=== PATIENT | female | born 1940 | race Caucasian/White ===

== ENCOUNTER 2018-08-21 11:40 | Observation (INO) ==
--- NOTE | 2018-08-21 12:20 | ED ---
HPI General Chief Complaint: Dizziness Stated Complaint: fall x last night Time Seen by Provider: 08/21/18 12:03 Source: patient Mode of arrival: ambulatory Limitations: no limitations History of Present Illness HPI Narrative: 77 yo F c/o fall last night leading to head laceration and L elbow laceration. pt reports profuse bleeding which eventually resolved at home. + prior episodes of dizziness. pt is not sure how she fell last night however denies LOC. no trip/mechanical fall. no CP/SOB. pt wonders if symptoms may be due to medications rx'd by PMD in [facility]. Patient arrives today because of dizziness lately and for evaluation of medications. + Hx aortic stenosis. + Compliance with aspirin. Related Data Home Medications Medication Instructions Recorded Confirmed atorvastatin 40 mg PO DAILY 08/21/18 08/21/18 carvedilol 12.5 mg PO BID 08/21/18 08/21/18 clonazepam 2 mg PO TID 08/21/18 08/21/18 losartan-hydrochlorothiazide 1 tab PO DAILY 08/21/18 08/21/18 valacyclovir 1 g PO DAILY 08/21/18 08/21/18 Allergies Allergy/AdvReac Type Severity Reaction Status Date / Time No Known Allergies Allergy Verified 08/21/18 11:51 Review of Systems Constitutional Denies fever(s) Neurologic Denies behavioral changes, Denies dizziness, Denies frequent falls, Denies headache(s), Denies numbness, Denies restless legs, Denies sensory deficit and Denies disequilibrium [facility] Medical History Medical History High cholesterol (Acute) Hypertension (Acute) Surgical History Surgical History History of carotid endarterectomy (Acute) Social History Social History Substance History: No History of Abuse Smoking Status: Former smoker How Often Do You Have a Drink Containing Alcohol: Never Recent Travel in [facility] within the Last 8 Weeks: No Recent Out of Country Travel within the Last 8 Weeks: No Exam Narrative Exam Narrative: GENERAL: 77 yo F, WNWD, pleasant, mildly anxious though cooperative SKIN: Focused skin assessment warm/dry. HEAD: Atraumatic. Normocephalic. 2mm dried blood wound along L occipital scalp. No hematoma. No mastoid ecchymosis or periorbital ecchymosis. EYES: Pupils equal and round. No scleral icterus. No injection or drainage. ENT: No nasal bleeding or discharge. Mucous membranes pink and moist. NECK: Trachea midline. No JVD. No c-spine tenderness to palpation. CARDIOVASCULAR: Regular rate and rhythm. No murmur appreciated. RESPIRATORY: No accessory muscle use. Clear to auscultation. Breath sounds equal bilaterally. GASTROINTESTINAL: Abdomen soft, non-tender, nondistended. Hepatic and splenic margins not palpable. MUSCULOSKELETAL: No obvious deformities. No clubbing. No cyanosis. No edema. NEUROLOGICAL: Awake and alert. No obvious cranial nerve deficits. Motor grossly within normal limits. Normal speech. PSYCHIATRIC: Appropriate mood and affect; insight and judgment normal. Course Initial Documented Vital Signs Temperature 97.4 F L 08/21/18 11:51 Pulse Rate 69 08/21/18 11:51 Respiratory Rate 16 08/21/18 11:51 Blood Pressure 152/67 H 08/21/18 11:51 Pulse Oximetry 95 08/21/18 11:51 Last Documented Vital Signs Temperature 97.4 F L 08/21/18 11:51 Pulse Rate 71 08/21/18 13:26 Respiratory Rate 18 08/21/18 13:26 Blood Pressure 149/71 H 08/21/18 13:26 Pulse Oximetry 95 08/21/18 13:26 Medical Decision Making MDM Narrative Medical decision making narrative: 77 F with near syncope, lightheadedness multiple times over past two weeks, yesterday with a fall. Workup thus far unremarkable. + Hx aortic stenosis. Pt has follow up on the [facility]. Call placed to [facility] for evaluation of near syncope at 141pm. D/W Dr Pino for [facility] at 157pm. Pt has been resting comfortably in ED. No cp/sob. PE considered less likely. Pt reports taking only asprin. Medical Screen Exam Complete: Yes Emergency Medical Condition: Yes Lab Data Lab results reviewed: Yes I reviewed the patient's lab results. Result diagrams: 08/21/18 12:35 08/21/18 12:35 Lab Results 08/21/18 08/21/18 08/21/18 Range/Units 12:35 12:35 12:35 CBC w Diff Auto diff final WBC 7.1 (4.0-11.0) th/mm3 RBC 3.82 L (4.00-5.30) mil/mm3 Hgb 12.1 (11.6-15.3) gm/dL Hct 36.0 (35.0-46.0) % MCV 94.4 (80.0-100.0) fL MCH 31.7 (27.0-34.0) pg MCHC 33.6 (32.0-36.0) % RDW 13.4 (11.6-17.2) % Plt Count 269 (150-450) th/mm3 MPV 7.5 (7.0-11.0) fL Neut % (Auto) 70.2 H (16.0-70.0) % Lymph % (Auto) 15.8 (9.0-44.0) % [place] % (Auto) 8.7 H (0.0-8.0) % Eos % (Auto) 5.0 H (0.0-4.0) % Baso % (Auto) 0.3 (0.0-2.0) % Neut # (Auto) 5.0 (1.8-7.7) th/mm3 Lymph # (Auto) 1.1 (1.0-4.8) th/mm3 [place] # (Auto) 0.6 (0.0-0.9) th/mm3 Eos # (Auto) 0.4 (0.0-0.4) th/mm3 Baso # (Auto) 0.0 (0.0-0.2) th/mm3 WBC Differential . Differential Comment . PT 10.3 (9.8-11.6) sec INR 1.0 Ratio APTT 25.5 (23.4-31.7) sec Sodium 138 (136-145) meq/L Potassium 4.0 (3.5-5.1) meq/L Chloride 100 (98-107) meq/L Carbon Dioxide 34.5 H (21.0-32.0) meq/L Anion Gap 4 L (5-15) meq/L BUN 7 (7-18) mg/dL Creatinine 0.63 (0.50-1.00) mg/dL Estimated GFR Greater than 89 (>89) mL/min Random Glucose 151 H (74-106) mg/dL Calcium 8.4 L (8.5-10.1) mg/dL Troponin I Less than 0.02 L (0.02-0.05) ng/mL Ur Collection Type Urine Color (Yellw/Straw) Urine Clarity (Clear) Urine pH (5.0-8.5) Ur Specific [place] (1.002-1.035) Urine Protein (Neg-Trace) mg/dL Urine Glucose (UA) (Negative) mg/dL Urine Ketones (Negative) mg/dL Urine Occult Blood (Negative) Urine Nitrate (Negative) Urine Bilirubin (Negative) Urine Urobilinogen (Less than 2) mg/dL Ur Leukocyte Esterase (Negative) Ur Squamous Epith Cells (0-5) /hpf Ur Transition Epith Cell (None) /hpf Micro UA Comment Ur Microscopic Review Urine Culture Comments 08/21/18 Range/Units 13:09 CBC w Diff WBC (4.0-11.0) th/mm3 RBC (4.00-5.30) mil/mm3 Hgb (11.6-15.3) gm/dL Hct (35.0-46.0) % MCV (80.0-100.0) fL MCH (27.0-34.0) pg MCHC (32.0-36.0) % RDW (11.6-17.2) % Plt Count (150-450) th/mm3 MPV (7.0-11.0) fL Neut % (Auto) (16.0-70.0) % Lymph % (Auto) (9.0-44.0) % [place] % (Auto) (0.0-8.0) % Eos % (Auto) (0.0-4.0) % Baso % (Auto) (0.0-2.0) % Neut # (Auto) (1.8-7.7) th/mm3 Lymph # (Auto) (1.0-4.8) th/mm3 [place] # (Auto) (0.0-0.9) th/mm3 Eos # (Auto) (0.0-0.4) th/mm3 Baso # (Auto) (0.0-0.2) th/mm3 WBC Differential Differential Comment PT (9.8-11.6) sec INR Ratio APTT (23.4-31.7) sec Sodium (136-145) meq/L Potassium (3.5-5.1) meq/L Chloride (98-107) meq/L Carbon Dioxide (21.0-32.0) meq/L Anion Gap (5-15) meq/L BUN (7-18) mg/dL Creatinine (0.50-1.00) mg/dL Estimated GFR (>89) mL/min Random Glucose (74-106) mg/dL Calcium (8.5-10.1) mg/dL Troponin I (0.02-0.05) ng/mL Ur Collection Type Clean catch Urine Color Yellow (Yellw/Straw) Urine Clarity Clear (Clear) Urine pH 8.0 (5.0-8.5) Ur Specific [place] 1.010 (1.002-1.035) Urine Protein Negative (Neg-Trace) mg/dL Urine Glucose (UA) Negative (Negative) mg/dL Urine Ketones Negative (Negative) mg/dL Urine Occult Blood Negative (Negative) Urine Nitrate Negative (Negative) Urine Bilirubin Negative (Negative) Urine Urobilinogen 0.2 (Less than 2) mg/dL Ur Leukocyte Esterase Negative (Negative) Ur Squamous Epith Cells 0-5 (0-5) /hpf Ur Transition Epith Cell 1-5 H (None) /hpf Micro UA Comment Culture not ind Ur Microscopic Review Microscopic reviewed Urine Culture Comments Culture not ind Imaging Data Attestation: I personally reviewed and interpreted this imaging study as follows : Radiologist's impression: Head CT 08/21/18 12:10 CONCLUSION: 1. No acute intracranial abnormality. 2. Age-related atrophy. 3. Right maxillary sinus disease. . Discharge Plan Discharge Disposition Patient Disposition: ED Admit(ED Internal Use Only) Physicians Team ED Provider: Jerry Saavedra Primary Care Provider: UNKNOWN, Rxs /Orders / Referrals /Forms Prescriptions: No Action atorvastatin 40 mg Tablet 40 mg PO DAILY RF: 0 carvedilol 12.5 mg Tablet 12.5 mg PO BID RF: 0 valacyclovir 1 gram Tablet 1 g PO DAILY RF: 0 clonazepam 2 mg Tablet 2 mg PO TID RF: 0 losartan-hydrochlorothiazide 50-12.5 mg Tablet 1 tab PO DAILY RF: 0 Status ED Status: With Doctor
[2018-08-21 12:42] LABS: Baso % (Auto) 0.3 % (0.0-2.0); Eos # (Auto) 0.4 th/mm3 (0.0-0.4); Hemoglobin 12.1 gm/dL (11.6-15.3); Lymph # (Auto) 1.1 th/mm3 (1.0-4.8); Lymph % (Auto) 15.8 % (9.0-44.0); Mean Corpuscular HGB Conc 33.6 % (32.0-36.0); Mean Corpuscular Hemoglobin 31.7 pg (27.0-34.0); Mean Corpuscular Volume 94.4 fL (80.0-100.0); Mean Platelet Volume 7.5 fL (7.0-11.0); Mono # (Auto) 0.6 th/mm3 (0.0-0.9); Mono % (Auto) 8.7 % (0.0-8.0); Neut % (Auto) 70.2 % (16.0-70.0); Platelet Count 269 th/mm3 (150-450); Red Blood Count 3.82 mil/mm3 (4.00-5.30); Red Cell Distribution Width 13.4 % (11.6-17.2); White Blood Count 7.1 th/mm3 (4.0-11.0)
[2018-08-21 12:49] LABS: Chloride 100 meq/L (98-107); Sodium 138 meq/L (136-145)
[2018-08-21 12:51] LABS: Calcium 8.4 mg/dL (8.5-10.1)
[2018-08-21 12:52] LABS: Anion Gap 4 meq/L (5-15); Blood Urea Nitrogen 7 mg/dL (7-18); Carbon Dioxide 34.5 meq/L (21.0-32.0); Glucose,Random 151 mg/dL (74-106)
[2018-08-21 12:55] LABS: Activated Partial Thrombo Time 25.5 sec (23.4-31.7); Glomerular Filtration Rate Greater Than 89 mL/min (>89); Prothrombin Time 10.3 sec (9.8-11.6)
--- NOTE | 2018-08-21 12:57 | CT ---
EXAM DATE: 08/21/2018 12:51 PM EST AGE/SEX: 77 years / Female INDICATIONS: Trauma. Fell and hit back of head last night. Head laceration. Dizziness last night. CLINICAL DATA: This is the patient's initial encounter. Patient reports that signs and symptoms have been present for 1 day and indicates a pain score of 1/10. MEDICAL/SURGICAL HISTORY: None. None. RADIATION DOSE: 48.21 CTDI (mGy) COMPARISON: No prior exams available for comparison. TECHNIQUE: CT of the head without contrast. Using automated exposure control and adjustment of the mA and/or kV according to patient size, radiation dose was kept as low as reasonably achievable to ob tain optimal diagnostic quality images. DICOM format image data is available electronically for revi ew and comparison. FINDINGS: Cerebrum: The ventricles and cortical sulci are widened. No evidence of midline shift, mass lesion, hemorrhage or acute infarction. No extraaxial fluid collections are seen. Posterior Fossa: The cerebellum and brainstem are intact. The 4th ventricle is midline. The cerebe llopontine angle is unremarkable. Extracranial: The visualized portion of the orbits is intact. There is mucosal thickening at the rig ht maxillary sinus. Skull: The calvaria is intact. No evidence of skull fracture. CONCLUSION: 1. No acute intracranial abnormality. 2. Age-related atrophy. 3. Right maxillary sinus disease. . Electronically signed by: Jason Sauceda MD 08/21/2018 12:56 PM EST
[2018-08-21] MEDS ORDERED: Sodium Chlor 0.9% Inj 500 ML IV.SIG SCH (13:00)
[2018-08-21 13:24] LABS: Bilirubin,Urine Negative (Negative); Clarity,Urine Clear (Clear); Color,Urine Yellow (Yellw/Straw); Glucose,Urine (UA) Negative (Negative); Leukocyte Esterase,Urine Negative (Negative); Nitrite,Urine Negative (Negative); Urobilinogen,Urine 0.2 mg/dL (Less than 2)
[2018-08-21 13:35] LABS: Squamous Epithelial Cell,Urine 0-5 /hpf (0-5)
[2018-08-21] MEDS: Sod Chloride 0.9% Inj 1,000 ML IV.CONT SCH ×3 (14:12→22:01)
[2018-08-21 14:21] LABS: Albumin 3.6 g/dL (3.4-5.0)
[2018-08-21 14:23] LABS: Aspartate Aminotransferase 21 U/L (15-37)
[2018-08-21 14:24] LABS: Alanine Aminotransferase 23 U/L (10-53)
[2018-08-21 14:43] LABS: Alkaline Phosphatase 59 U/L (45-117); Total Protein 7.3 g/dL (6.4-8.2)
[2018-08-21] MEDS ORDERED: Bisacodyl 10 MG Supp RECTAL PRN (15:00)
[2018-08-21] MEDS ORDERED: Acetaminophen 325 MG Tablet PO PRN (15:00)
--- NOTE | 2018-08-21 17:04 | P.HP ---
History of Present Illness Primary Care Physician: UNKNOWN Chief Complaint: Dizziness History of Present Illness: 77-year-old female with known history of hypertension, hyperlipidemia , carotid stenosis, aortic stenosis who presented to the hospital because of recurrent falls at home. Patient states that she has been having episodes of dizziness over the last week. She states that approximately 3 different episodes where she was doing different activities causing her to have dizziness. She states that the dizziness can happen rather sudden and without any prewarning. There is no specific time in which can happen whether it is during exercise, rest, standing, sitting, exertion. Patient states that last night she just got done washing some dishes, doing a little chores around the kitchen and she got this sudden onset of dizziness and she fell down to the floor and hitting her left elbow and the posterior part of her scalp and her hip. Patient denies any loss of consciousness, loss of bowel or bladder control , any tonic-clonic movements. Patient states that there was quite a bit of blood from her elbow and posterior scalp. She cannot see the backside of her head and there was no one at her home in order to check it so she went to her friend's home who cleaned the wound up and she went back home. She called her sister this morning who told her that she needed to go to the hospital for evaluation. Patient is followed on a regular basis by her doctor in [facility]. She does get carotid ultrasounds, echocardiograms done on a yearly basis. She states that everything has been okay at this time. Patient did come to the emergency department for evaluation. Workup was performed and relatively unremarkable. It was recommended by ER physician that the patient be admitted for further evaluation and management. - Diagnosis (1) Fall at home (2) Closed head injury Inpatient Certification: I certify that the inpatient services were ordered in accordance with Medicare regulations governing the order. This includes certification that hospital inpatient services are reasonable and necessary and in the case of services not specified as inpatient-only under 42 CFR 419.22(n), that they are appropriately provided as inpatient services in accordance to with the 2-midnight benchmark under 43 CFR 412.3(e) Review of Systems Neurologic: Reports dizziness (With fall at home) [facility] - History History Provided By: Patient - Medical History Medical History: Medical History (Last Updated 08/21/18 @ 16:38 by AMANDA Day) Aortic stenosis High cholesterol Hypertension - Surgical History Surgical History: Surgical History (Last Reviewed 08/21/18 @ 16:39 by AMANDA Day) History of carotid endarterectomy - Family History Family History: Family History (Last Updated 08/21/18 @ 16:39 by AMANDA Day) Mother Family history of cirrhosis of liver Father Family history of lung cancer Sister Family history of lung cancer - Tobacco History Second Hand Smoke Exposure: No Tobacco Use In Past 30 Days: No Smoking Status: Former smoker Tobacco Type: Cigarettes Number of Cigars Per Week: 27 (Patient quit smoking 35 years ago) - Alcohol History How Often Do You Have a Drink Containing Alcohol: Monthly or less - Substance Use History Substance History: No History of Abuse - Travel History Recent Travel in the [place] Within the Last 8 Weeks: No Recent Travel Out of the Country Within the Last 8 Weeks: Yes - Immunization History Tetanus Immunization: <5 Years Medications and Allergies Active Medications: Active Medications Acetaminophen (Tylenol) 650 mg PO Q4H PRN PRN Reason: Headache, fever, pain 1-4 Al Hydroxide/Mg Hydroxide (Milk Of Magnesia Liq) 30 ml PO Q12H PRN PRN Reason: Mild Constipation Bisacodyl (Dulcolax Supp) 10 mg RECTAL DAILY PRN PRN Reason: SEVERE CONSITIPATION Sodium Chloride (Ns Inj) 1,000 mls @ 100 mls/hr IV.CONT .Q10H [facility] Stop: 08/22/18 14:59 Last Admin: 08/21/18 16:05 Dose: Not Given Lactulose (Lactulose Liq) 30 ml PO DAILY PRN PRN Reason: SEVERE CONSITIPATION Ondansetron HCl (Zofran Inj) 4 mg IV.PUSH Q6H PRN PRN Reason: NAUSEA OR VOMITING Sennosides (Senokot) 17.2 mg PO Q12H PRN PRN Reason: Moderate Constipation Sodium Chloride (Ns Flush) 2 ml IV.FLUSH PRN PRN PRN Reason: FLUSH AFTER USING IV ACCESS Sodium Chloride (Ns Flush) 2 ml IV.FLUSH PRN PRN PRN Reason: FLUSH AFTER USING IV ACCESS Sodium Chloride (Ns Flush) 2 ml IV.FLUSH BID [facility] Allergies Allergy/AdvReac Type Severity Reaction Status Date / Time No Known Allergies Allergy Verified 08/21/18 11:51 Home Medications Medication Instructions Recorded Confirmed Type atorvastatin 40 mg PO DAILY 08/21/18 08/21/18 History carvedilol 12.5 mg PO BID 08/21/18 08/21/18 History clonazepam 2 mg PO TID 08/21/18 08/21/18 History losartan-hydrochlorothiazide 1 tab PO DAILY 08/21/18 08/21/18 History valacyclovir 1 g PO DAILY 08/21/18 08/21/18 History Exam Vital signs: Vital Signs 08/21/18 11:51 08/21/18 12:30 08/21/18 13:26 Temperature 97.4 F L Pulse Rate 69 64 71 Respiratory Rate 16 18 Blood Pressure 152/67 H 149/71 H Pulse Oximetry 95 98 95 08/21/18 14:35 08/21/18 16:00 Temperature 96.4 F L Pulse Rate 66 76 Respiratory Rate 20 17 Blood Pressure 150/58 H 148/64 H Pulse Oximetry 95 96 Intake & Output 08/20/18 08/21/18 08/21/18 18:59 06:59 18:59 Intake Total 500 / 500 Balance 500 / 500 Weight 61.4 kg Intake: IV 500 / 500 NS Inj 500 ML @ 1000 mls/hr IV. 500 / 500 SIG BOLUS ROD Rx#:[id number] Other: Date of Last Bowel Movement 08/21/18 Weight On Admission 61.4 kg Narrative: GENERAL: Well-developed, well-nourished, in no acute distress. alert and orientated HEENT: Head is normocephalic without any lesions or masses noted. Facial features are symmetric. Eyes: Pupils equal round reactive to light. Extraocular muscles are intact. Conjunctivae were clear. Oropharyngeal: Pharynx without any erythema edema. Tongue is midline without deviation. Buccal mucosa is moist without any masses or lesions NECK: Supple without any masses. Trachea midline no deviation. No JVD, auscultation of the carotid arteries both have sounds coming from her aortic stenosis CARDIAC: Regular rhythm, regular rate. S1/S2 are heard. 2/6 early holosystolic murmur noted in the aortic region. No gallops or rubs. LUNGS: Clear to auscultation bilaterally. No wheeze, rhonchi or rales. No use of accessory muscles on inspiration or expiration. ABDOMEN: Soft, nontender. Nondistended. Bowel sounds heard in all 4 quadrants. No organomegaly or masses. Negative rebound, negative guarding EXTREMITIES: No edema, pulses are equal bilaterally. No cyanosis or clubbing NEUROLOGY: Mood and affect appear appropriate. Cranial nerves II through XII grossly intact. Muscle strength 5/5 in upper and lower extremities bilaterally. Deep tendon reflexes are 2+ in upper and lower extremities bilaterally. Results - Labs CBC & Chem 7: 08/21/18 12:35 08/21/18 12:35 Labs: Laboratory Results - last 24 hr 08/21/18 08/21/18 08/21/18 12:35 12:35 12:35 CBC w Diff Auto diff final WBC 7.1 RBC 3.82 L Hgb 12.1 Hct 36.0 MCV 94.4 MCH 31.7 MCHC 33.6 RDW 13.4 Plt Count 269 MPV 7.5 Neut % (Auto) 70.2 H Lymph % (Auto) 15.8 [place] % (Auto) 8.7 H Eos % (Auto) 5.0 H Baso % (Auto) 0.3 Neut # (Auto) 5.0 Lymph # (Auto) 1.1 [place] # (Auto) 0.6 Eos # (Auto) 0.4 Baso # (Auto) 0.0 WBC Differential . Differential Comment . PT 10.3 INR 1.0 APTT 25.5 Sodium 138 Potassium 4.0 Chloride 100 Carbon Dioxide 34.5 H Anion Gap 4 L BUN 7 Creatinine 0.63 Estimated GFR Greater than 89 Random Glucose 151 H Calcium 8.4 L Total Bilirubin 0.6 AST 21 ALT 23 Alkaline Phosphatase 59 Troponin I Less than 0.02 L Total Protein 7.3 Albumin 3.6 Ur Collection Type Urine Color Urine Clarity Urine pH Ur Specific [place] Urine Protein Urine Glucose (UA) Urine Ketones Urine Occult Blood Urine Nitrate Urine Bilirubin Urine Urobilinogen Ur Leukocyte Esterase Ur Squamous Epith Cells Ur Transition Epith Cell Micro UA Comment Ur Microscopic Review Urine Culture Comments 08/21/18 13:09 CBC w Diff WBC RBC Hgb Hct MCV MCH MCHC RDW Plt Count MPV Neut % (Auto) Lymph % (Auto) [place] % (Auto) Eos % (Auto) Baso % (Auto) Neut # (Auto) Lymph # (Auto) [place] # (Auto) Eos # (Auto) Baso # (Auto) WBC Differential Differential Comment PT INR APTT Sodium Potassium Chloride Carbon Dioxide Anion Gap BUN Creatinine Estimated GFR Random Glucose Calcium Total Bilirubin AST ALT Alkaline Phosphatase Troponin I Total Protein Albumin Ur Collection Type Clean catch Urine Color Yellow Urine Clarity Clear Urine pH 8.0 Ur Specific [place] 1.010 Urine Protein Negative Urine Glucose (UA) Negative Urine Ketones Negative Urine Occult Blood Negative Urine Nitrate Negative Urine Bilirubin Negative Urine Urobilinogen 0.2 Ur Leukocyte Esterase Negative Ur Squamous Epith Cells 0-5 Ur Transition Epith Cell 1-5 H Micro UA Comment Culture not ind Ur Microscopic Review Microscopic reviewed Urine Culture Comments Culture not ind - Imaging Impressions Head CT 08/21/18 12:10 CONCLUSION: 1. No acute intracranial abnormality. 2. Age-related atrophy. 3. Right maxillary sinus disease. . Caprini VTE Risk Assessment Caprini VTE Risk Assessment: Moderate/High Risk (score >= 2) Caprini Risk Assessment Model: Point Value = 1 Point Value = 2 Point Value = 3 Point Value = 5 Age 41-60 Minor surgery BMI > 25 kg/m2 Swollen legs Varicose veins or History of unexplained or recurrent spontaneous Oral contraceptives or hormone replacement Sepsis (< 1 month) Serious lung disease, including pneumonia (< 1 month) Abnormal pulmonary function Acute myocardial infarction Congestive heart failure (< 1 month) History of inflammatory bowel disease Medical patient at bed rest Age 61-74 Arthroscopic surgery Major open surgery (> 45 min) Laparoscopic surgery (> 45 min) Malignancy Confined to bed (> 72 hours) Immobilizing plaster cast Central venous access Age >= 75 History of VTE Family history of VTE Factor V Leiden Prothrombin [id number] Lupus anticoagulant Anticardiolipin antibodies Elevated serum homocysteine Heparin-induced thrombocytopenia Other congenital or acquired thrombophilia Stroke (< 1 month) Elective arthroplasty Hip, pelvis, or leg fracture Acute spinal cord injury (< 1 month) Prophylaxis Regimen: Total Risk Factor Score Risk Level Prophylaxis Regimen 0-1 Low Early ambulation 2 Moderate Order ONE of the following: *Sequential Compression Device (SCD) *Heparin 5000 units SQ BID 3-4 Higher Order ONE of the following medications: *Heparin 5000 units SQ TID *Enoxaparin/Lovenox 40 mg SQ daily (WT < 150 kg, CrCl > 30 mL/min) *Enoxaparin/Lovenox 30 mg SQ daily (WT < 150 kg, CrCl > 10-29 mL/min) *Enoxaparin/Lovenox 30 mg SQ BID (WT < 150 kg, CrCl > 30 mL/min) AND/OR *Sequential Compression Device (SCD) 5 or more Highest Order ONE of the following medications: *Heparin 5000 units SQ TID (Preferred with Epidurals) *Enoxaparin/Lovenox 40 mg SQ daily (WT < 150 kg, CrCl > 30 mL/min) *Enoxaparin/Lovenox 30 mg SQ daily (WT < 150 kg, CrCl > 10-29 mL/min) *Enoxaparin/Lovenox 30 mg SQ BID (WT < 150 kg, CrCl > 30 mL/min) AND *Sequential Compression Device (SCD) Assessment and Plan - Assessment (1) Fall at home Code(s): W19.XXXA - Unspecified fall, initial encounter; Y92.009 - Unspecified place in unspecified non-institutional (private) residence as the place of occurrence of the external cause Status: Acute (2) Closed head injury Code(s): S09.90XA - Unspecified injury of head, initial encounter Status: Acute - Plan Dizziness with fall at home resulting in closed head injury -Patient indicates that the symptoms have been going on for over a week. Given that the CT scan does not indicate any acute abnormality unlikely that this is related to acute CVA -Patient does have history of bilateral carotid stenosis status post carotid endarterectomy and active aortic stenosis -We will continue with IV fluids for at least 1 more liter -Obtain echocardiogram -Obtain carotid ultrasound -Monitor telemetry -Check orthostatic vitals -Continue frequent neuro checks for postconcussion syndrome Hypertension, hyperlipidemia -Patient does have mildly elevated blood pressure at this time -Continue Coreg at this time, will hold losartan/hydrochlorothiazide -Continue atorvastatin DVT prevention -Sequential compression devices
[2018-08-21] MEDS ORDERED: Sod Chloride 0.9% Inj 1,000 ML IV.CONT SCH (17:15)
--- NOTE | 2018-08-21 21:35 | US ---
EXAM DATE: 08/21/2018 9:28 PM EST AGE/SEX: 77 years / Female INDICATIONS: Syncope. CLINICAL DATA: This is the patient's initial encounter. Patient reports that signs and symptoms have been present for 1 day and indicates a pain score of 0/10. MEDICAL/SURGICAL HISTORY: Hypertension. Hypercholesterolemia. Aortic stenosis. Carotid endart erectomy. COMPARISON: No prior exams available for comparison. VELOCITY PARAMETERS: ICA/CCA Ratio: Right 1.6 , Left 3.2 ICA: Right 112 cm/sec, Left 244 cm/sec CCA: Right 69 cm/sec, Left 75 cm/sec ECA: Right 91 cm/sec, Left 139 cm/sec Vertebral: Right 73 cm/sec antegrade, Left 62 cm/sec antegrade FINDINGS: Right Carotid: Moderate arteriosclerotic plaque is visualized.The waveforms are within normal limits . Left Carotid: Moderate arteriosclerotic plaque is visualized. The waveforms are within normal limits . Other: None. CONCLUSION: 1. Right Internal Carotid Artery: Moderate visible plaque formation with mild to moderate stenosis. 2. Left Internal Carotid Artery: Moderate visible plaque formation with moderate to severe carotid s tenosis and PSV ratio of 3.2. This would be better evaluated on CTA carotids. Electronically signed by: Todd Nixon MD 08/21/2018 9:33 PM EST
[2018-08-21] MEDS: Carvedilol 12.5 MG Tablet PO SCH (22:02)
[2018-08-22] MEDS: Sod Chloride 0.9% Inj 1,000 ML IV.CONT SCH ×3 (02:38→11:11)
[2018-08-22] MEDS: Carvedilol 12.5 MG Tablet PO SCH ×2 (09:10→20:09)
--- NOTE | 2018-08-22 13:26 | P.PNIM ---
Subjective Interval history: 77-year-old female seen and examined today for follow-up on dizziness and syncopal episode. Patient resting comfortably in bed. Denies any new complaints. Denies any recurrent dizziness. Vital signs are stable. Patient remains afebrile. Physical Exam Vital signs: Vital Signs 08/21/18 13:26 08/21/18 14:35 08/21/18 16:00 Temperature 96.4 F L Pulse Rate 71 66 76 Respiratory Rate 18 20 17 Blood Pressure 149/71 H 150/58 H 148/64 H Pulse Oximetry 95 95 96 08/21/18 20:00 08/21/18 23:44 08/22/18 00:00 Temperature 97.8 F 97.5 F L Pulse Rate 80 78 80 Respiratory Rate 20 18 20 Blood Pressure 142/66 H 113/53 L Pulse Oximetry 92 L 90 L 08/22/18 00:15 08/22/18 02:04 08/22/18 04:00 Temperature 97.2 F L Pulse Rate 78 87 Respiratory Rate 20 Blood Pressure 137/63 Pulse Oximetry 92 L 92 L 08/22/18 08:00 08/22/18 12:00 Temperature 96.7 F L 96.8 F L Pulse Rate 89 79 Respiratory Rate 17 16 Blood Pressure 146/65 H 131/62 Pulse Oximetry 92 L 94 L Intake & Output 08/21/18 08/22/18 08/22/18 18:59 06:59 18:59 Intake Total 980 / 980 1240 / 1240 1000 / 1000 Balance 980 / 980 1240 / 1240 1000 / 1000 Weight 61.4 kg 61.5 kg Intake: IV 500 / 500 1000 / 1000 1000 / 1000 NS Inj 1,000 ML @ 100 mls/hr IV 1000 / 1000 1000 / 1000 .CONT .Q10H ROD Rx#:[id number] NS Inj 500 ML @ 1000 mls/hr IV. 500 / 500 SIG BOLUS ROD Rx#:[id number] Oral 480 / 480 240 / 240 Other: # Voids 3 2 Date of Last Bowel Movement 08/21/18 08/21/18 # Bowel Movements 0 Weight On Admission 61.4 kg Narrative: GENERAL: Well-developed, well-nourished, in no acute distress. alert and orientated HEENT: Head is normocephalic without any lesions or masses noted. Facial features are symmetric. Eyes: Extraocular muscles are intact. Conjunctivae were clear. NECK: Supple without any masses. Trachea midline no deviation. No JVD, CARDIAC: Regular rhythm, regular rate. S1/S2 are heard. 2/6 early holosystolic murmur noted in the aortic region. No gallops or rubs. LUNGS: Clear to auscultation bilaterally. No wheeze, rhonchi or rales. No use of accessory muscles on inspiration or expiration. ABDOMEN: Soft, nontender. Nondistended. Bowel sounds heard in all 4 quadrants. No organomegaly or masses. Negative rebound, negative guarding EXTREMITIES: No edema, pulses are equal bilaterally. No cyanosis or clubbing NEUROLOGY: Mood and affect appear appropriate. Cranial nerves II through XII grossly intact. Moving all extremities, speech is clear Results - Labs CBC & Chem 7: 08/21/18 12:35 08/21/18 12:35 Laboratory Results - last 24 hr 08/21/18 08/21/18 12:35 13:09 Sodium 138 Potassium 4.0 Chloride 100 Carbon Dioxide 34.5 H Anion Gap 4 L BUN 7 Creatinine 0.63 Estimated GFR Greater than 89 Random Glucose 151 H Calcium 8.4 L Total Bilirubin 0.6 AST 21 ALT 23 Alkaline Phosphatase 59 Troponin I Less than 0.02 L Total Protein 7.3 Albumin 3.6 Ur Collection Type Clean catch Urine Color Yellow Urine Clarity Clear Urine pH 8.0 Ur Specific [place] 1.010 Urine Protein Negative Urine Glucose (UA) Negative Urine Ketones Negative Urine Occult Blood Negative Urine Nitrate Negative Urine Bilirubin Negative Urine Urobilinogen 0.2 Ur Leukocyte Esterase Negative Ur Squamous Epith Cells 0-5 Ur Transition Epith Cell 1-5 H Micro UA Comment Culture not ind Ur Microscopic Review Microscopic reviewed Urine Culture Comments Culture not ind - Imaging Impressions Carotid Doppler Study 08/21/18 00:00 CONCLUSION: 1. Right Internal Carotid Artery: Moderate visible plaque formation with mild to moderate stenosis. 2. Left Internal Carotid Artery: Moderate visible plaque formation with moderate to severe carotid stenosis and PSV ratio of 3.2. This would be better evaluated on CTA carotids. Assessment and Plan - Assessment (1) Fall at home Code(s): W19.XXXA - Unspecified fall, initial encounter; Y92.009 - Unspecified place in unspecified non-institutional (private) residence as the place of occurrence of the external cause Status: Acute (2) Closed head injury Code(s): S09.90XA - Unspecified injury of head, initial encounter Status: Acute - Plan Dizziness with fall at home resulting in closed head injury -Patient indicates that the symptoms have been going on for over a week. Given that the CT scan does not indicate any acute abnormality unlikely that this is related to acute CVA -Patient does have history of bilateral carotid stenosis status post carotid endarterectomy and active aortic stenosis -Status post 2 L IV fluid resuscitation -Awaiting echocardiogram -Carotid ultrasound showing mild to moderate stenosis of the right internal carotid, moderate to severe stenosis in the left internal carotid, recommending CTA of the carotids -Awaiting CTA of the carotids -Monitor telemetry -Orthostatic vitals were performed and are positive, will make sure patient has SHANIKA hose on and repeat orthostatic blood pressures today. -Continue frequent neuro checks for postconcussion syndrome Hypertension, hyperlipidemia -Patient does have mildly elevated blood pressure at this time -Continue Coreg at this time, will hold losartan/hydrochlorothiazide -Continue atorvastatin DVT prevention -Sequential compression devices
--- NOTE | 2018-08-22 16:28 | ECHRPT ---
Indication: Syncope CONCLUSIONS Normal left ventricular size. Wall thickness is normal. The left ventricular systolic function is normal with an estimated ejection fraction in the range of 55-60%. Mild thickening of the mitral valve leaflets. [id number]-mp-quauvxip mitral valve regurgitation. Aortic valve sclerosis is present. Moderate aortic valve regurgitation. There is trace tricuspid valve regurgitation. BP: / HR: Rhythm: MEASUREMENTS (Male / Female) Normal Values Technical Quality:Fair 2D ECHO LV Diastolic Diameter PLAX 3.9 cm 4.2 - 5.9 / 3.9 - 5.3 cm LV Systolic Diameter PLAX 2.6 cm IVS Diastolic Thickness 0.8 cm 0.6 - 1.0 / 0.6 - 0.9 cm LVPW Diastolic Thickness 0.8 cm 0.6 - 1.0 / 0.6 - 0.9 cm LV Relative Wall Thickness 0.4 RV Internal Dim ED PLAX 1.8 cm LVOT Diameter 1.6 cm Aortic Root Diameter 2.5 cm LA Systolic Diameter LX 2.5 cm 3.0 - 4.0 / 2.7 - 3.8 cm M-MODE AV Cusp Separation MM 1.7 cm DOPPLER AV Peak Velocity 256.5 cm/s AV Peak Gradient 26.3 mmHg AV Mean Gradient 15.0 mmHg AV Velocity Time Integral 55.1 cm AI Peak Velocity 398.0 cm/s AI Peak Gradient 63.4 mmHg AI Pressure Half Time 341.0 ms LVOT Peak Velocity 111.0 cm/s LVOT Peak Gradient 4.9 mmHg LVOT Velocity Time Integral 27.7 cm AV Area Cont Eq vti 1.0 cm AV Area Cont Eq pk 0.9 cm MV Peak Velocity 151.0 cm/s MV Peak Gradient 9.1 mmHg MV Mean Velocity 115.0 cm/s MV Mean Gradient 6.0 mmHg Mitral E Point Velocity 130.0 cm/s Mitral A Point Velocity 141.0 cm/s Mitral E to A Ratio 0.9 LV E' Lateral Velocity 7.9 cm/s Mitral E to LV E' Lateral Ratio 16.5 LV E' Septal Velocity 6.1 cm/s Mitral E to LV E' Septal Ratio 21.2 TR Peak Velocity 292.0 cm/s TR Peak Gradient 34.1 mmHg Right Atrial Pressure 10.0 mmHg Pulmonary Artery Systolic Pressu 44.1 mmHg Right Ventricular Systolic Press 44.1 mmHg PV Peak Velocity 147.0 cm/s PV Peak Gradient 8.6 mmHg FINDINGS LEFT VENTRICLE Normal left ventricular size. Wall thickness is normal. The left ventricular systolic function is normal with an estimated ejection fraction in the range of 55-60%. RIGHT VENTRICLE Normal right ventricular size and systolic function. LEFT ATRIUM The left atrial size is normal. RIGHT ATRIUM The right atrial size is normal. ATRIAL SEPTUM Normal atrial septal thickness without atrial level shunting by limited color doppler interrogation. AORTA The aortic root and proximal ascending aorta are normal in size on limited imaging. MITRAL VALVE Mild thickening of the mitral valve leaflets. Mild mitral valve regurgitation. AORTIC VALVE Trileaflet aortic valve. Aortic valve sclerosis is present. Mild aortic valve regurgitation. TRICUSPID VALVE There is trace tricuspid valve regurgitation. PULMONARY VALVE No pulmonary valve regurgitation or stenosis. VESSELS The inferior vena cava is normal in size. PERICARDIUM No pericardial effusion. Harley Day MD (Electronically Signed) Final Date:22 August 2018 16:28
--- NOTE | 2018-08-22 19:07 | CT ---
EXAM DATE: 08/22/2018 6:57 PM EST AGE/SEX: 77 years / Female INDICATIONS: Dizziness. Syncope. Left carotid stenosis. CLINICAL DATA: This is the patient's initial encounter. Patient reports that signs and symptoms have been present for 2 days and indicates a pain score of 0/10. MEDICAL/SURGICAL HISTORY: Hypertension. Carotid endarterectomy. RADIATION DOSE: 42.95 CTDI (mGy) COMPARISON: [facility], US CAROTID DOPPLER BI, 08/21/2018. . TECHNIQUE: Volumetric scanning was performed using a multirow detector CT scanner during bolus infus ion of 75 ml Omnipaque 350 (iohexol) nonionic water-soluble contrast as a single exam dose. The da ta was postprocessed with a variety of visualization algorithms including full-volume maximum intensi ty projection, multiplanar sliding thin-slab reformation, curved-planar reformation, and surface-rend ering techniques. Using automated exposure control and adjustment of the mA and/or kV according to p atient size, radiation dose was kept as low as reasonably achievable to obtain optimal diagnostic armond lity images. DICOM format image data is available electronically for review and comparison. Percent stenosis is calculated using the diameter of the stenotic region over the diameter of the nor mal distal internal carotid artery. FINDINGS: Mild atherosclerosis of the arch and arch vessel origins without stenosis. Bilateral common carotid arteries are within normal limits. There is noncalcified atherosclerotic plaque of the bilateral bulbs and proximal internal carotid art eries, mild on the right and moderate on the left. No significant narrowing on the right. On the left , there is a less than 1 cm long area of 30% or less stenosis of the proximal internal carotid artery , for example series 100 image 37. Left vertebral artery origin is either from the base of the left subclavian artery origin directly fr om the arch. There is ostial atherosclerosis and probably an approximately 50% very short segment xochilt nosis. The right vertebral artery is normal. CONCLUSION: 1. Mild noncalcified atherosclerotic plaque of the right carotid bifurcation without significant julio césar rowing. 2. Moderate noncalcified atherosclerotic plaque of the left carotid bifurcation. There is a short se gment, 30% or less stenosis of the proximal internal carotid artery. 3. Ostial atherosclerosis and estimated 50% short segment stenosis of the left vertebral artery. It arises from the base of the left subclavian artery, potentially directly from the arch. Right vertebr al artery is normal. Electronically signed by: Jason Giordano MD 08/22/2018 7:06 PM EST
[2018-08-22] MEDS ORDERED: clonazePAM 1 MG Tablet PO ONE (21:00)
--- NOTE | 2018-08-23 08:41 | P.DS ---
Date of admission: 08/21/18 14:23 Primary care physician: UNKNOWN Attending physician on discharge: Klarissa Culp Anticipated date of discharge: 08/23/18 Brief History from admission: 77-year-old female with known history of hypertension, hyperlipidemia , carotid stenosis, aortic stenosis who presented to the hospital because of recurrent falls at home. Patient states that she has been having episodes of dizziness over the last week. She states that approximately 3 different episodes where she was doing different activities causing her to have dizziness. She states that the dizziness can happen rather sudden and without any prewarning. There is no specific time in which can happen whether it is during exercise, rest, standing, sitting, exertion. Patient states that last night she just got done washing some dishes, doing a little chores around the kitchen and she got this sudden onset of dizziness and she fell down to the floor and hitting her left elbow and the posterior part of her scalp and her hip. Patient denies any loss of consciousness, loss of bowel or bladder control , any tonic-clonic movements. Patient states that there was quite a bit of blood from her elbow and posterior scalp. She cannot see the backside of her head and there was no one at her home in order to check it so she went to her friend's home who cleaned the wound up and she went back home. She called her sister this morning who told her that she needed to go to the hospital for evaluation. Patient is followed on a regular basis by her doctor in [facility]. She does get carotid ultrasounds, echocardiograms done on a yearly basis. She states that everything has been okay at this time. Patient did come to the emergency department for evaluation. Workup was performed and relatively unremarkable. It was recommended by ER physician that the patient be admitted for further evaluation and management. DS: Diagnosis - Discharge Diagnosis (1) Fall at home Status: Acute (2) Closed head injury Status: Acute (3) Orthostatic hypotension Status: Acute DS: Summary Hospital Course: 77-year-old female who was recently evaluated in the hospital for episodes of dizziness, fall at home, closed head injury and possible syncopal episode. Patient did have workup done with CT of the brain which did not indicate any acute abnormality. Orthostatic vitals were performed which did indicate orthostatic hypotension. Patient was given IV fluid hydration, SHANIKA hose were placed. After hydration orthostatic vitals were performed and there is no more signs of orthostasis. Patient did undergo further workup as well with carotid ultrasound which did indicate severe left carotid stenosis and recommending CTA of the carotids. CTA was performed which did not indicate any severe carotid stenosis. Patient does have history of carotid stenosis with bilateral carotid endarterectomy. Echocardiogram was performed which did show some aortic sclerosis, however no significant aortic stenosis or other abnormalities that could contribute to her dizziness. Upon review of her medications it does appear the patient was on a diuretic. That was held during her stay in the hospital and her orthostatic blood pressure remained stable. Patient did have an episode last evening of possible anxiety with blood pressure elevation and tachycardia. Patient was given clonazepam with significant improvement of her condition. Patient is on clonazepam at home, however that was held during her stay in the hospital because of her recent dizziness, fall at home. Patient is clinically stable at this time. She is very eager to go home. No further signs or symptoms of orthostasis. 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 We will plan discharge accordingly. - Time Spent with Patient Total time spent providing and/or coordinating discharge services: Greater than 30 minutes - Quality: VTE Deep Vein Thrombosis/Pulmonary Embolism Present on Admission: No Exam Vital signs: Vital Signs 08/22/18 12:00 08/22/18 16:00 08/22/18 20:00 Temperature 96.8 F L 97.8 F 97 F L Pulse Rate 83 92 H 120 H Respiratory Rate 16 16 18 Blood Pressure 131/62 145/66 H 199/99 H Pulse Oximetry 94 L 95 92 L 08/23/18 00:00 08/23/18 04:00 Temperature 98.4 F 97.5 F L Pulse Rate 76 77 Respiratory Rate 18 18 Blood Pressure 94/46 L 114/56 L Pulse Oximetry 98 97 Intake & Output 08/22/18 08/23/18 08/23/18 18:59 06:59 18:59 Intake Total 2720 / 2720 240 / 240 Balance 2720 / 2720 240 / 240 Weight 61.6 kg Intake: IV 1999 NS Inj 1,000 ML @ 100 mls/hr IV 1999 .CONT .Q10H ROD Rx#:[id number] Oral 720 / 720 240 / 240 Other: # Voids 6 3 Date of Last Bowel Movement 08/21/18 # Bowel Movements 0 Narrative: GENERAL: Well-developed, well-nourished, in no acute distress. alert and orientated HEENT: Head is normocephalic without any lesions or masses noted. Facial features are symmetric. Eyes: Extraocular muscles are intact. Conjunctivae were clear. NECK: Supple without any masses. Trachea midline no deviation. No JVD, CARDIAC: Regular rhythm, regular rate. S1/S2 are heard. 2/6 early holosystolic murmur noted in the aortic region. No gallops or rubs. LUNGS: Clear to auscultation bilaterally. No wheeze, rhonchi or rales. No use of accessory muscles on inspiration or expiration. ABDOMEN: Soft, nontender. Nondistended. Bowel sounds heard in all 4 quadrants. No organomegaly or masses. Negative rebound, negative guarding EXTREMITIES: No edema, pulses are equal bilaterally. No cyanosis or clubbing NEUROLOGY: Mood and affect appear appropriate. Cranial nerves II through XII grossly intact. Moving all extremities, speech is clear Results Procedures completed during hospitalization: ECHOCARDIOGRAM CONCLUSIONS Normal left ventricular size. Wall thickness is normal. The left ventricular systolic function is normal with an estimated ejection fraction in the range of 55-60%. Mild thickening of the mitral valve leaflets. Tiox-rj-grazolpc mitral valve regurgitation. Aortic valve sclerosis is present. Moderate aortic valve regurgitation. There is trace tricuspid valve regurgitation. - Impressions ITS Impressions Carotid Doppler Study 08/21/18 00:00 CONCLUSION: 1. Right Internal Carotid Artery: Moderate visible plaque formation with mild to moderate stenosis. 2. Left Internal Carotid Artery: Moderate visible plaque formation with moderate to severe carotid stenosis and PSV ratio of 3.2. This would be better evaluated on CTA carotids. Head CT 08/21/18 12:10 CONCLUSION: 1. No acute intracranial abnormality. 2. Age-related atrophy. 3. Right maxillary sinus disease. . Neck CTA 08/22/18 00:00 CONCLUSION: 1. Mild noncalcified atherosclerotic plaque of the right carotid bifurcation without significant narrowing. 2. Moderate noncalcified atherosclerotic plaque of the left carotid bifurcation. There is a short segment, 30% or less stenosis of the proximal internal carotid artery. 3. Ostial atherosclerosis and estimated 50% short segment stenosis of the left vertebral artery. It arises from the base of the left subclavian artery, potentially directly from the arch. Right vertebral artery is normal. Discharge Plan - Discharge Disposition Patient Disposition: 01 Discharge Home - Discharge Condition Condition: Stable - Discharge Order Discharge Orders: Discharge Order (Routine); Ordered 08/23/18 Ordered By: Nestor Gary - Discharge Details Anticipated Discharge Date: 08/23/18 - Physicians Team Primary Care Provider: UNKNOWN, Attending Provider: Klarissa Culp
[2018-08-23] MEDS: Carvedilol 12.5 MG Tablet PO SCH (08:49)
--- NOTE | 2018-08-23 18:05 | ECG ---
Date Performed: 08/21/2018 Time Performed: 12:41:04 PTAGE: 77 years EKG: Sinus rhythm WITH FIRST DEGREE AV BLOCK ABNORMAL ECG NO PREVIOUS TRACING DOCTOR: Alina Ortega Interpretating Date/Time 08/23/2018 17:38:00
== END 2018-08-23 09:50 | disposition home or self-care (01) ==
LOC: PHED 11:40 → INTOOBSV 14:23 → PHEDA 14:23 → PH3 15:26
PROVIDERS: ADMIT Internal Medicine; ATTEND Internal Medicine